=== PATIENT | male | born 1985 | race Caucasian/White ===

== ENCOUNTER 2017-06-19 17:15 | Emergency (ER) | payer SELFPAY ==
[~2017-06-19] VITALS: Ht 180.3 cm; Wt 89.0 kg
[2017-06-19] MEDS ORDERED: PREDNISONE50 MG PO (19:19)
[2017-06-19] MEDS ORDERED: EPIPEN 2-P0.3 MG/0.3 IM (19:19)
[2017-06-19 19:29] VITALS: BP 165/81
== END 2017-06-19 19:15 | disposition home or self-care (01) | DRG 916 ==
LOC: ED 17:15
DX: T78.2XXA Anaphylactic shock, unspecified, initial encounter (principal)